=== PATIENT | female | born 1955 ===

== ENCOUNTER 2022-04-28 06:40 | Observation (INO) ==
[~2022-04-28 06:40] MED LIST: Buffered Lidocaine 1% SYRIN 1 ml INTRADERM ONE; Lactated Ringers 1000 ml BAG 1,000 ML IV SCH; Naloxone 0.4 mg VIAL 0.4 mg/ml 1 ml VIAL IV PRN; Ondansetron 4 mg VIAL 2 MG/ML 2 ml VIAL IV PRN; fentaNYL 100 mcg/2 ml 50 MCG/ML VIAL IV PRN; oxyCODONE/Acetamin 5/325 mg TAB PO PRN
[2022-04-28] MEDS ORDERED: Ropivacaine 5 MG/ML 20 ML VIAL 0.5% (100 MG) ONE (06:44)
[2022-04-28] MEDS ORDERED: Phenylephrine IV 10 MG/ML 1 ml VIAL ONE (06:47)
[2022-04-28] MEDS ORDERED: ceFAZolin 2 GM PREMIX 2 GM/50 ML BAG ONE (06:47)
[2022-04-28] MEDS ORDERED: Dexamethasone IV 4 MG/ML VIAL 1 ml VIAL ONE (06:49)
[2022-04-28] MEDS ORDERED: Midazolam 2 mg/2 ml VIAL 1 mg/ml 2 ml VIAL (2 mg) ONE ×2 (06:49→07:56)
[2022-04-28] MEDS ORDERED: Lidocaine 2% PF 5 ML VIAL ONE (06:49)
[2022-04-28] MEDS ORDERED: Acetaminophen IV 1 GM/100ML 1,000 MG/100 ML BAG IV ONE (06:49)
[2022-04-28] MEDS ORDERED: Propofol 10 MG/ML 20 ML BTL ONE (06:49)
[2022-04-28] MEDS ORDERED: fentaNYL 100 mcg/2 ml 50 MCG/ML VIAL ONE ×2 (06:49→07:56)
[2022-04-28] MEDS ORDERED: Ondansetron 4 mg VIAL 2 MG/ML 2 ml VIAL ONE (06:49)
[2022-04-28] MEDS ORDERED: Sterile Water for Inj 20 ML ONE (07:53)
[2022-04-28] MEDS ORDERED: Dexmedetomidine 200 mcg/2 ml 2 ml VIAL (200 mcg) ONE (07:53)
[2022-04-28] MEDS ORDERED: ROPIVACAINE 5 MG/ML 30 ML BTL (0.5%) ONE (07:56)
[2022-04-28] MEDS ORDERED: Sterile Water for Inj 10 ML ONE (09:07)
[2022-04-28] MEDS ORDERED: Morphine 2 MG/ML SYRINGE IV PRN (10:52)
[2022-04-28] MEDS ORDERED: Lactulose 30 ml UDC PO PRN (10:52)
[2022-04-28] MEDS ORDERED: Ondansetron ODT 4 mg TAB 4 MG TAB PO PRN (10:52)
[2022-04-28] MEDS ORDERED: Ondansetron 4 mg VIAL 2 MG/ML 2 ml VIAL IV PRN (10:52)
[2022-04-28] MEDS ORDERED: Magnesium Hydroxide LIQ 30 ML UDC PO PRN (10:52)
[2022-04-28] MEDS ORDERED: oxyCODONE/Acetamin 5/325 mg TAB ONE (11:26)
[2022-04-28] MEDS: Lactated Ringers 1000 ml BAG 1,000 ML IV SCH ×2 (12:33→22:57)
[2022-04-28] MEDS: ceFAZolin 1 GM ADVAN 1 GM in NS 0.9% 50 ML 50 ML IVPB SCH (16:11)
[2022-04-28] MEDS: Magnesium Hydroxide LIQ 30 ML UDC PO SCH (22:38)
[2022-04-29] MEDS: ceFAZolin 1 GM ADVAN 1 GM in NS 0.9% 50 ML 50 ML IVPB SCH ×2 (00:12→08:39)
[2022-04-29 07:28] LABS: Hematocrit 36 % (35-47); Hemoglobin 11.8 g/dL (12.0-16.0); Mean Platelet Volume 9.2 fL (7.4-10.4); Platelet Count 191 10^3/uL (150-450)
[2022-04-29 08:19] LABS: Calcium 9.1 mg/dL (8.6-10.3); Creatinine, Serum 0.46 mg/dL (0.51-0.95); Potassium 3.7 mmol/L (3.5-5.0); eGFR CKD-EPI 104.2 (>60)
[2022-04-29] MEDS: Magnesium Hydroxide LIQ 30 ML UDC PO SCH (08:41)
[2022-04-29] MEDS ORDERED: Vitamin THERAPEUTIC TAB PO SCH (09:00)
[2022-04-29 09:32] VITALS: BP 142/77
== END 2022-04-29 12:05 | disposition home or self-care (01) ==
LOC: SUATTDRO 06:40 → INTOOBSV 06:40 → AA 06:40 → SSU 12:22
PROVIDERS: ADMIT Orthopaedic Surgery Adult Reconstructive Orthopaedic Surgery; ATTEND Internal Medicine Hematology & Oncology